=== PATIENT | female | born 1960 | race Caucasian/White ===

== ENCOUNTER 2018-03-03 03:27 | Emergency (ER) | payer BC, SELFPAY ==
[2018-03-03 03:31] VITALS: BP 143/81; PULSE 100; RESP 15; TEMP 36.8; O2SAT 100; BMI 29.5
--- NOTE | 2018-03-03 03:47 | RAD_ITS ---
STUDY: X-RAY CHEST REASON FOR EXAM: Female, 57 years old. Cough TECHNIQUE: Frontal and lateral views of the chest. COMPARISON: None. FINDINGS: The lungs are clear and expanded. There is no demonstrated pleural abnormality. Normal size heart. Normal mediastinum and jimmy. Normal visualized pulmonary arteries. Normal visualized aortic arch and descending thoracic aorta. Normal visualized thoracic spine. Normal visualized ribs, clavicles, and shoulders. There is no demonstrated abnormality of the visualized soft tissue structures of the upper abdomen. RAD/Chest PA and Lateral IMPRESSION: Normal x-ray examination of the chest. Electronically Signed: Ammon Dozier MD at 4:55 EDT Tel , Service support ,
[2018-03-03] MEDS: Ketorolac 15 MG/ML Vial IV (03:58)
[2018-03-03] MEDS: 0.9% Normal Saline 1,000 ML 1000 ML IV (03:58)
[2018-03-03] MEDS: Ondansetron 4 MG/2 ML Vial IV (03:58)
[2018-03-03 04:00] LABS: Absolute Lymphocyte Count 0.93 X10^3/ul (0.83-4.51); Absolute Neutrophil Count 4.8 X10^3/uL (2.0-7.7); Basophil# 0.01 X10^3/uL; Basophil% 0.2 % (0-1); Eosinophil# 0.03 X10^3/uL; Eosinophils% 0.5 % (0-5); Hemoglobin 14.1 g/dl (12.0-15.0); Lymphocyte # 0.93 X10^3/ul (4.0); Lymphocyte % 15.1 % (19-41); Mean Corp Hgb Conc 32.8 g/gl (32-36); Mean Corpuscular Hgb 31.1 pg (27.0-32.0); Mean Corpuscular Volume 94.9 fL (81-99); Monocyte# 0.36 X10^3/uL; Monocyte% 5.8 % (0-10); Neutrophil # 4.82 X10^3/uL (2.7-7.7); Neutrophil % 78.2 % (47-70); Platelet Count 323 K/mm3 (150-450); RBC Distribution Width CV 12.5 % (11.6-14.6); RBC Distribution Width SD 42.4 fl (35.1-43.9); Red Blood Count 4.53 M/mm3 (4.2-5.4); White Blood Count 6.2 K/mm3 (4.4-11.0)
[2018-03-03 04:07] LABS: POSITIVE COUNT NO; POSITIVE DIFFERENTIAL NO; POSITIVE MORPHOLOGY NO
[2018-03-03 04:08] LABS: AST(SGOT) 17 U/L (15-37); Alanine Aminotransfer ALT/SGPT 28 U/L (13-56); Alkaline Phosphatase 89 U/L (45-117); Anion Gap 10 (5-15); BUN 19 mg/dL (7-18); BUN/Creat Ratio 21.5 RATIO (10-20); Calcium,Total 8.6 mg/dL (8.5-10.1); Chloride 103 mmol/L (98-107); Creatinine, Serum 0.88 mg/dL (0.55-1.02); EST Glomerular Filtration Rate 70 mL/min (>60); Est Glom Filt Rate - Afr Amer 85 mL/min (>60); Globulin 3.9 g/dL (2.2-4.2); Glucose 124 mg/dL (74-106); Phosphorus 2.8 mg/dL (2.5-4.9); Potassium 3.8 mmol/L (3.5-5.1); Protein, Total 7.9 g/dL (6.4-8.2); Sodium Level 143 mmol/L (136-145)
[2018-03-03 05:10] VITALS: BP 109/72; PULSE 79; RESP 22; O2SAT 99
--- NOTE | 2018-03-03 05:24 | ED.DCSUM_ITS ---
- ER Visit Summary Date of Service: 03/03/18 Chief Complaint: Nausea vomiting diarrhea and cough History of Present Illness: The patient is a 57 F presenting for evaluation secondary to the above. Patient states that she has been sick for the better part of the last month. Patient reports that approximately a month ago she started with some sinus type symptoms. She reports that she was having congestion, she started to take her antihistamine more regularly, but this progressed to a nonproductive cough. Patient reports that she went to her primary care office and was placed on a course of amoxicillin and Mucinex. She reports that the cough was persistent however and did not alleviate so more recently over the course of the last week she was changed to a azithromycin course as well as prednisone. Patient reports that she just finished her azithromycin course, and was supposed to continue to be taking her prednisone, but today she only took 20 mg and she started to develop subjective fevers chills sweats nausea vomiting and diarrhea. Patient states that since midnight she has had 7-8 episodes of vomiting that is nonbloody nonbilious. She states that she has some mild diffuse abdominal pain. Review of systems is otherwise negative. Physical Examination: Vital signs notable for heart rate of 100. Well- nourished female no acute distress. No conjunctival pallor or scleral icterus. She does have dry mucous membranes. Neck supple. Heart was regular rate and rhythm on my exam no evidence tachycardia. Lung sounds clear to auscultation bilaterally. Abdomen was soft diffusely tender no guarding or rebound tenderness noted. 2+ radial pulses that were bilaterally symmetric. No skin changes noted, no lateralizing neurological deficits. Test Results: CBC shows a mild predominance of neutrophils at 78% and suppression of lymphocytes of 15%, CMP unremarkable magnesium and phosphorus levels are normal. Chest x-ray PA and lateral per radiology and my personal review are negative Emergency Department Course and Treatment: Patient presented for evaluation secondary to generalized illness for a month with new onset of nausea and vomiting. IV was established patient was given 2 L normal saline Zofran and Toradol. Patient's workup was found to be unremarkable as noted above. This rules out the possibility of underlying atypical pneumonia, serious infection, anemia, new onset of leukemia, or other serious cause for the patient's generalized illness. She likely has one illness coming after another and now has developed some gastroenteritis. At this point I believe the patient can safely be discharged. She will be sent home with a course of Zofran. She was recommended follow-up with her primary care physician all questions were answered and the patient was discharged. Disposition: Discharge Impression: 1. Gastroenteritis This note was generated with [employer] dictation software. It may contain incorrect words, spelling, and punctuation that were not noted in review of the chart prior to signing ED Disposition - Plan for ED Patient: Disposition: Home or Assisted Living Chief Complaint: General Illness Diagnosis: Gastroenteritis Instructions: ED Gastroenteritis Viral Prescriptions: Ondansetron [Zofran Odt] 4 mg PO Q8H PRN PRN #10 tab PRN Reason: Nausea Referrals: Tamara Leal MD [Primary Care Provider] - 3-5 Days if not improving
[2018-03-03 06:13] VITALS: BP 109/71; PULSE 96; RESP 19; O2SAT 99
--- NOTE | 2018-03-03 06:14 | ED.RN ---
IV DC'ED, CATHETER INTACT, SMALL GAUZE DRESSING PLACED. DISCHARGE INSTRUCTIONS GIVEN TO AND REVIEWED WITH PATIENT, PATIENT DENIES QUESTIONS OR CONCERNS AND VOICES UNDERSTANDING OF DISCHARGE INSTRUCTIONS. PT AMBULATES OUT OF ROOM WITHOUT DIFFICULTY.
== END 2018-03-03 06:15 | disposition home or self-care (01) ==
PROVIDERS: Emergency Provider Emergency Medicine; Family Provider Family Medicine; PCP Family Medicine
DX: K52.9 Noninfective gastroenteritis and colitis, unspecified (principal); R10.84 Generalized abdominal pain; R05 Cough; Z79.52 Long term (current) use of systemic steroids; Z79.899 Other long term (current) drug therapy
CPT/HCPCS: 71046; 80053; 83735; 84100; 85025; 96361; 96374; 96375; 99282; J7030; A4216; J2405

== ENCOUNTER → 2018-10-08 07:21 | Outpatient (CLI) | payer OTHER, BC, SELFPAY ==
--- NOTE | 2018-10-08 07:32 | BI_ITS ---
MAMMOGRAPHY - BILATERAL SCREENING REASON FOR EXAM: Female, 58 years old. Routine annual screening examination. PERTINENT HISTORY: Non-contributory. TECHNIQUE: Digital bilateral breast bushra (3D mammographic acquisition) in the CC and MLO projections. 2-D mediolateral oblique (MLO) and craniocaudad (CC) views of both breasts were obtained. CAD: Full Field Digital Mammography with Computer Added Detection was performed. COMPARISON: Comparison is made with prior study dated May 13, 2017 and April 10, 2016. FINDINGS: Breast Composition: The breasts are heterogeneously dense, which may obscure small masses. There are no dominant masses or suspicious calcifications. Stable benign-appearing bilateral axillary lymph nodes. No other significant abnormalities are identified. There has been no significant change since the prior study. BI/SCREENING MAMM (CAD), BILAT IMPRESSION: Stable bilateral screening mammogram. Yearly follow-up mammogram recommended. (A) ASSESSMENT CATEGORY: BIRADS Category 2: Benign. A letter regarding these results will be sent to the patient by the facility within 30 days. Approximately 10% of breast cancers are not detected by mammography. A normal mammogram should not delay biopsy of a clinically suspicious abnormality. [id number] Electronically Signed: Ernesto Belcher MD at 8:53 EST Tel [phone], Service support ,
--- OUTSIDE RECORDS SUMMARY | 2018-12-12 14:30 | XMS RPT_ITS ---
:1960 Author Organization [facility] Care Team Providers Name Role Phone PAUL ELMORE, DR. JAIMES Attending Unavailable LUIS EDUARDO ELMORE, DR. ALMONTE Primary Care Unavailable Tamara Leal Attending Unavailable Tamara Leal Primary Care Unavailable Tamara Leal Referring Unavailable Tamara Leal Primary Care Unavailable Mateo Murphy Attending Unavailable PROBLEMS PROBLEMS DATE TYPE CONDITION / CODE ATTENDING STATUS SOURCE 03/26/2018 Unknown R11.2 - Nausea Mateo Murphy Active [facility] with vomiting, Community unspecified / Hospital R11.2(ICD-10) Repository PROCEDURES PROCEDURES No Procedure Records FoundRESULTS RESULTS SCREENING MAMM (CAD), Observed: 10/08/2018 Status: F Source: [place] BILAT 7:32 AM [facility] REPOSITORY [facility] Imaging Services [address] [place] [address] SCREENING MAMM (CAD), BILAT MR#: [id number] Acct: [id number] Name: LORELEI BAE Rep #: [id number] : 1960 F 58 From: Ernesto Belcher MD PCP: Tamara Leal MD Status: REG CLI Study: SCREENING MAMM (CAD), BILAT Date of Exam: 10/08/18 Exam# [id number] Ordering Dr: Tamara Leal MD MAMMOGRAPHY - BILATERAL SCREENING REASON FOR EXAM: Female, 58 years old. Routine annual screening examination. PERTINENT HISTORY: Non-contributory. TECHNIQUE: Digital bilateral breast bushra (3D mammographic acquisition) in the CC and MLO projections. 2-D mediolateral oblique (MLO) and craniocaudad (CC) views of both breasts were obtained. CAD: Full Field Digital Mammography with Computer Added Detection was performed. COMPARISON: Comparison is made with prior study dated May 13, 2017 and April 10, 2016. FINDINGS: Breast Composition: The breasts are heterogeneously dense, which may obscure small masses. There are no dominant masses or suspicious calcifications. Stable benign-appearing bilateral axillary lymph nodes. No other significant abnormalities are identified. There has been no significant change since the prior study. BI/SCREENING MAMM (CAD), BILAT IMPRESSION: Stable bilateral screening mammogram. Yearly follow-up mammogram recommended. (A) ASSESSMENT CATEGORY: BIRADS Category 2: Benign. A letter regarding these results will be sent to the patient by the facility within 30 days. Approximately 10% of breast cancers are not detected by mammography. A normal mammogram should not delay biopsy of a clinically suspicious abnormality. [id number] Electronically Signed: Ernesto Belcher MD at 8:53 EST Tel [phone], Service support , CC: Tamara Leal MD Transport Nurse: Signed FINAL SURGICAL Observed: 09/06/2018 Status: F Source: [facility] PATHOLOGY REPORT 10:40 AM [place] REPOSITORY . Pathology Reports Accession: Collected Date/Time: Received Date/Time: Pathologist: [id number] 09/06/2018 10:40 EST 09/07/2018 08:29 MD LOAN CANO Final Surgical Pathology Report DIAGNOSIS: STOMACH, BIOPSY: MILD CHRONIC GASTRITIS. NEGATIVE FOR H. PYLORI. COMMENT: [facility] - D# [id number] CLINICAL INFORMATION: Procedure: EGD WITH BIOPSIES GASTRIC ANTRUM BODY Preoperative diagnosis: GERD Postoperative diagnosis: SAME SPECIMEN: A BIOPSIES GASTRIC ANTRUM BODY - R/O GASTRITIS GROSS DESCRIPTION: Received in formalin labeled gastric antrum body biopsies are 3 anthony glistening soft tissues averaging 0.3 cm. TS -1 Dictated by Laura SHOEMAKER ([facility]) MICROSCOPIC DESCRIPTION: Slides reviewed. Electronically Signed by Pathology Report verified by [facility] Electronically signed by LOAN KUMAR MD Sign out Date: 09/08/2018 11:43 Performing Lab: [address] Performed By: #### SPFR #### [place] [address] EMERGENCY DEPARTMENT Observed: 03/03/2018 Status: F Source: [place] SUMMARY 7:27 AM [facility] REPOSITORY [facility] Medical Records Department [address] [place] [address] Emergency Department Summary 03/03/18 0520 MR#: [id number] Acct: [id number] Name: LORELEI BAE Rep #: [id number] : 1960 57 From: Mateo Murphy MD PCP: Tamara Leal MD Status: DEP ER - ER Visit Summary Date of Service: 03/03/18 Chief Complaint: Nausea vomiting diarrhea and cough History of Present Illness: The patient is a 57 F presenting for evaluation secondary to the above. Patient states that she has been sick for the better part of the last month. Patient reports that approximately a month ago she started with some sinus type symptoms. She reports that she was having congestion, she started to take her antihistamine more regularly, but this progressed to a nonproductive cough. Patient reports that she went to her primary care office and was placed on a course of amoxicillin and Mucinex. She reports that the cough was persistent however and did not alleviate so more recently over the course of the last week she was changed to a azithromycin course as well as prednisone. Patient reports that she just finished her azithromycin course, and was supposed to continue to be taking her prednisone, but today she only took 20 mg and she started to develop subjective fevers chills sweats nausea vomiting and diarrhea. Patient states that since midnight she has had 7-8 episodes of vomiting that is nonbloody nonbilious. She states that she has some mild diffuse abdominal pain. Review of systems is otherwise negative. Physical Examination: Vital signs notable for heart rate of 100. Well-nourished female no acute distress. No conjunctival pallor or scleral icterus. She does have dry mucous membranes. Neck supple. Heart was regular rate and rhythm on my exam no evidence tachycardia. Lung sounds clear to auscultation bilaterally. Abdomen was soft diffusely tender no guarding or rebound tenderness noted. 2+ radial pulses that were bilaterally symmetric. No skin changes noted, no lateralizing neurological deficits. Test Results: CBC shows a mild predominance of neutrophils at 78% and suppression of lymphocytes of 15%, CMP unremarkable magnesium and phosphorus levels are normal. Chest x-ray PA and lateral per radiology and my personal review are negative Emergency Department Course and Treatment: Patient presented for evaluation secondary to generalized illness for a month with new onset of nausea and vomiting. IV was established patient was given 2 L normal saline Zofran and Toradol. Patient's workup was found to be unremarkable as noted above. This rules out the possibility of underlying atypical pneumonia, serious infection, anemia, new onset of leukemia, or other serious cause for the patient's generalized illness. She likely has one illness coming after another and now has developed some gastroenteritis. At this point I believe the patient can safely be discharged. She will be sent home with a course of Zofran. She was recommended follow-up with her primary care physician all questions were answered and the patient was discharged. Disposition: Discharge Impression: 1. Gastroenteritis This note was generated with [employer] dictation software. It may contain incorrect words, spelling, and punctuation that were not noted in review of the chart prior to signing ED Disposition - Plan for ED Patient: Disposition: Home or Assisted Living Chief Complaint: General Illness Diagnosis: Gastroenteritis Instructions: ED Gastroenteritis Viral Prescriptions: Ondansetron [Zofran Odt] 4 mg PO Q8H PRN PRN #10 tab PRN Reason: Nausea Referrals: Tamara Leal MD [Primary Care Provider] - 3-5 Days if not improving What to do if you have Problems For any increased pain, shortness of breath, bleeding, nausea or vomiting, chest pain, or any unexpected problems, contact your Primary Care Provider. Call [facility] ([phone]) or report to the closest Emergency Room. Call 911 if necessary. 03/03/18 0727 <Electronically signed by Mateo Murphy MD> Date Mateo Murphy MD Cosigner Signature (If Indicated): Date CC: Tamara Leal MD CHEST PA AND LATERAL Observed: 03/03/2018 Status: F Source: [place] 3:48 AM [facility] REPOSITORY [facility] Imaging Services [address] [place] [address] Chest PA and Lateral MR#: [id number] Acct: [id number] Name: LORELEI BAE Rep #: [id number] : 1960 F 57 From: Ammon Dozier MD PCP: Tamara Leal MD Status: REG ER Study: Chest PA and Lateral Date of Exam: 03/03/18 Exam# [id number] Ordering Dr: Mateo Murphy MD STUDY: X-RAY CHEST REASON FOR EXAM: Female, 57 years old. Cough TECHNIQUE: Frontal and lateral views of the chest. COMPARISON: None. FINDINGS: The lungs are clear and expanded. There is no demonstrated pleural abnormality. Normal size heart. Normal mediastinum and jimmy. Normal visualized pulmonary arteries. Normal visualized aortic arch and descending thoracic aorta. Normal visualized thoracic spine. Normal visualized ribs, clavicles, and shoulders. There is no demonstrated abnormality of the visualized soft tissue structures of the upper abdomen. RAD/Chest PA and Lateral IMPRESSION: Normal x-ray examination of the chest. Electronically Signed: Ammon Dozier MD at 4:55 EDT Tel , Service support , CC: Tamara Leal MD; Mateo Murphy Transport Nurse: Signed CBC W/DIFF, AUTOMATED Collected: 03/03/2018 Status: F Source: [place] 3:34 AM [facility] REPOSITORY TYPE CODE TESTS RESULT OUT OF RANGE REFERENCE UNITS LAB L100.1000 4.4-11.0 K/mm3 Normal WBC 6.2 LAB L100.1200 4.2-5.4 M/mm3 Normal RBC 4.53 LAB L100.1300 12.0-15.0 g/dl Normal HGB 14.1 LAB L100.1400 37-47 % Normal HCT 43.0 LAB L100.1500 81-99 fL Normal MCV 94.9 LAB L100.1600 27.0-32.0 pg Normal MCH 31.1 LAB L100.1700 32-36 g/gl Normal MCHC 32.8 LAB L100.1810 11.6-14.6 % Normal RDW CV 12.5 LAB L100.1820 35.1-43.9 fl Normal RDW SD 42.4 LAB L100.1900 150-450 K/mm3 Normal PLT 323 LAB L100.2000 6.2-12.0 fl Normal MPV 9.0 LAB L100.2100 47-70 % High NEUT% 78.2 LAB L100.2200 19-41 % Low LY% 15.1 LAB L100.2300 0-10 % Normal MONO% 5.8 LAB L100.2400 0-5 % Normal EO% 0.5 LAB L100.2500 0-1 % Normal BASO% 0.2 LAB L100.2550 0.0-0.9 % Normal IM GRAN % 0.200 Result Comment: IG% - Immature Granulocytes (promyelocytes, myelocytes and metamyelocytes) > 1% indicates that a LEFT SHIFT is Present. LAB L100.2620 2.0-7.7 X10 3/uL Normal Absolute Neut 4.8 LAB L100.2720 0.83-4.51 X10 3/ul Normal Absolute Lymph 0.93 Performed By: #### L100.0100 #### [facility] [address] [place], [address] COMPREHENSIVE METABOLIC Collected: 03/03/2018 Status: F Source: [facility] 3:34 AM [facility] REPOSITORY TYPE CODE TESTS RESULT OUT OF RANGE REFERENCE UNITS LAB L501.0100 74-106 mg/dL High GLU 124 Result Comment: Fasting Glucose result from 100 to 125 mg/dL suggests IMPAIRED HOMEOSTASIS per A.D.A. criteria. Please note revised GLUCOSE reference range effective 2017. LAB L501.1000 7-18 mg/dL High BUN 19 LAB L501.1100 0.55-1.02 mg/dL Normal CREAT,SERUM 0.88 Result Comment: The validity of the calculated GFR AND GFRAA in patients over 70 years has not been determined. Clinical correlation is essential. LAB L501.1110 >60 mL/min Normal EST GFR 70 Result Comment: Non- GFR Calc LAB L501.1115 >60 mL/min Normal EST GFR - AA 85 Result Comment: GFR Calc LAB L501.1300 10-20 RATIO High BUN/CRE 21.5 LAB L501.1500 6.4-8.2 g/dL T Normal PROT 7.9 LAB L501.1800 3.2-5.0 g/dL Normal ALB 4.0 LAB L501.1950 2.2-4.2 g/dL Normal GLOB 3.9 LAB L501.2000 0.9-2.4 RATIO Normal A/G 1.0 LAB L501.2200 8.5-10.1 mg/dL CA Normal 8.6 LAB L501.4100 15-37 U/L Normal AST 17 LAB L501.4305 45-117 U/L Normal ALK P 89 LAB L501.4405 13-56 U/L Normal ALT 28 LAB L501.4600 0.20-1.00 mg/dL T Normal BILI 0.30 LAB L501.5300 136-145 mmol/L NA Normal 143 LAB L501.5600 3.5-5.1 mmol/L K Normal 3.8 LAB L501.5900 98-107 mmol/L CL Normal 103 LAB L501.6100 21.0-32.0 mmol/L Normal CO2 30.0 LAB L501.6200 5-15 Normal GAP 10 Performed By: #### L500.4050, L501.5200 #### [facility] [address] [place], [address] MAGNESIUM Collected: 03/03/2018 Status: F Source: [place] 3:34 AM [facility] REPOSITORY TYPE CODE TESTS RESULT OUT OF RANGE REFERENCE UNITS LAB L501.5200 1.6-2.6 mg/dL Normal MG 2.0 Performed By: #### L500.4050, L501.5200 #### [facility] [address] [place], [address] PHOSPHORUS Collected: 03/03/2018 Status: F Source: [place] 3:34 [facility] REPOSITORY TYPE CODE TESTS RESULT OUT OF RANGE REFERENCE UNITS LAB L501.2300 2.5-4.9 mg/dL Normal PHOS 2.8 Performed By: #### L501.2300 #### [facility] [address] [place], [address] ALLERGIES ALLERGIES DATE TYPE / CODE NAME / CODE REACTION SEVERITY SOURCE 03/03/2018 Drug Sulfa Hives Unknown [facility] Allergy/4160 (Sulfonamide Hospital 34001(SNOMED Antibiotics)/ Repository CT) [id number](RX NORM) ENCOUNTERS ENCOUNTERS ADMIT/DISCHARGE ACCOUNT NUMBER ADMITTING ENCOUNTER LOCATION SOURCE CLASS 10/08/2018 [id number] Ambulatory General acute hospital ding:OPBI Repository 09/06/2018/09/06/20 [id number] Ambulatory BBuilding:CT Natalie [address] [place] [address] Repository 03/03/2018/03/03/20 [id number] Emergency [address] ding:ED Repository PAYERS PAYERS ENCOUNTER GUARANTOR PAYER SUBSCRIBER SOURCE 10/08/2018 LORELEI Portillo Primary LORELEI Portillo [place] [id number] HEYL Insurance:MINE ROA: [place], [place] CAREPolicy Number: [id number] Hospital [address]Luo: (239) [id number] Repository [address] () Date:5750-33-[address] [facility] [place] [address]UK: 10/08/2018 Secondary PEDRO RHEESDOB: Davi Insurance:ANTHEMPolic [id number] [facility]ly [facility] y Number: Hospital [id number] Repository Date:8614-10-31[address], [place] [address]KG: 10/08/2018 Tertiary NOT GIVENUNK Davi Insurance:SELF PAY [facility]: Effective Repository Date:2018-08-27 09/06/2018 LORELEI Lindsey Primary [facility] Health RHEESDOB: Insurance:SUMMACARE RHEESDOB: [facility] [id number] INSCOPolicy Number: [id number] Repository HEYL JACQUE, [id number] [place] [address]Sfj: Date:2018 - [place], [place] [id number] [address]Yfa: (330) () Name:[address] ()Tel: [phone]: (WP) [phone] 09/06/2018 Secondary LORELEI Olearyltman Health Insurance:BE RHEESDOB: [facility] INSCOPolicy [id number] Repository Number: 5 TERR[address] [id number] [place], [place] Date:2018 [address]Jza: ([phone] [id number] [phone] Name:[facility] BOX ()Tel: (000) [address] 000[address] (DZ) [phone]: 09/06/2018 Tertiary YANI RHEESDOB: [facility] Insurance:[facility] [place] [id number] [facility] INSCOPolicy 5 HEYL Repository Number: KAYLYN SANTILLAN [id number] [address]Vbc: (330) Date:2018 [id number] ()Tel: (000) Name:[facility] [address] [phone] (WP) [address]Ikajjvg, [place] [address]TQ: 03/03/2018 LORELEI Portillo Primary YANI RHEESUNK [place] [id number] HEYL Insurance:[facility] kaylyn Santillan y Number: Hospital [id number]: (330) [id number] Repository [phone] () Date:[id number], [place] [address]VF: 03/03/2018 Secondary NOT GIVENUNK [place] Insurance:SELF PAY Community [facility] Number: Effective Repository Date:2018-03-03
== END ==
PROVIDERS: Family Provider Family Medicine; PCP Family Medicine; Referring Provider Family Medicine; Visit Provider Family Medicine
DX: Z12.31 Encounter for screening mammogram for malignant neoplasm of breast (principal)
CPT/HCPCS: 77063; 77067

== ENCOUNTER → 2019-11-24 08:35 | Outpatient (CLI) | payer OTHER, SELFPAY ==
--- NOTE | 2019-11-24 08:38 | BI_ITS ---
MAMMOGRAPHY - BILATERAL SCREENING REASON FOR EXAM: Female, 59 years old. Routine annual screening examination. PERTINENT HISTORY: Non-contributory. TECHNIQUE: Digital bilateral breast to (3D mammographic acquisition) in the CC and MLO projections. 2-D mediolateral oblique (MLO) and craniocaudad (CC) views of both breasts were obtained. CAD: Full Field Digital Mammography with Computer Added Detection was performed. COMPARISON: Comparison is made with prior study dated October 08, 2018 and May 13, 2017. FINDINGS: Breast Composition: The breasts are heterogeneously dense, which may obscure small masses. There are no dominant masses or suspicious calcifications. No other significant abnormalities are identified. There has been no significant change since the prior study. BI/SCREEN MAMM (CAD) W/TO BILAT IMPRESSION: Stable bilateral screening mammogram. Yearly follow-up mammogram recommended. (A) ASSESSMENT CATEGORY: BIRADS Category 1: Negative. A letter regarding these results will be sent to the patient by the facility within 30 days. Approximately 10% of breast cancers are not detected by mammography. A normal mammogram should not delay biopsy of a clinically suspicious abnormality. [id number] Electronically Signed: Ernesto Belcher, at 10:39 EST , Service support ,
== END ==
PROVIDERS: PCP Family Medicine; Referring Provider Family Medicine; Visit Provider Family Medicine
DX: Z12.31 Encounter for screening mammogram for malignant neoplasm of breast (principal)
CPT/HCPCS: 77063; 77067

== ENCOUNTER → 2020-03-16 08:54 | Outpatient (CLI) | payer OTHER, SELFPAY ==
[2020-03-16 12:15] LABS: Absolute Neutrophil Count 2.7 X10^3/uL (2.0-7.7); Basophil# 0.04 X10^3/uL; Basophil% 0.8 % (0-1); Eosinophil# 0.12 X10^3/uL; Eosinophils% 2.4 % (0-5); Hematocrit 42.5 % (37-47); Hemoglobin 13.4 g/dL (12.0-15.0); Mean Corp Hgb Conc 31.5 g/dL (32-36); Mean Corpuscular Hgb 30.3 pg (27.0-32.0); Mean Corpuscular Volume 96.2 fL (81-99); Mean Platelet Vol. 9.6 fl (6.2-12.0); Monocyte# 0.29 X10^3/uL; Monocyte% 5.8 % (0-10); NRBC Flagged by Analyzer 0 % (0-5); Neutrophil # 2.74 X10^3/uL (2.7-7.7); Neutrophil % 54.8 % (47-70); Platelet Count 305 K/mm3 (150-450); RBC Distribution Width CV 12.8 % (11.6-14.6); RBC Distribution Width SD 45.6 fl (35.1-43.9); Red Blood Count 4.42 M/mm3 (4.2-5.4)
[2020-03-16 12:28] LABS: Vitamin D,25 Hydroxy 29.9 ng/mL
[2020-03-16 12:43] LABS: AST(SGOT) 20 U/L (15-37); Alanine Aminotransfer ALT/SGPT 28 U/L (13-56); Alkaline Phosphatase 71 U/L (45-117); Anion Gap 7 (5-15); BUN 14 mg/dL (7-18); BUN/Creat Ratio 16.4 RATIO (10-20); Calcium,Total 9.5 mg/dL (8.5-10.1); Chloride 103 mmol/L (98-107); Cholesterol 219 mg/dL (200); Creatinine, Serum 0.85 mg/dL (0.55-1.02); EST Glomerular Filtration Rate 73 mL/min (>60); Est Glom Filt Rate - Afr Amer 88 mL/min (>60); Globulin 3.9 g/dL (2.2-4.2); Glucose 94 mg/dL (74-106); High Density Lipoprotein 84 mg/dL; Potassium 4.5 mmol/L (3.5-5.1); Protein, Total 7.9 g/dL (6.4-8.2); Sodium Level 139 mmol/L (136-145); Thyroid Stim Hormone (TSH) 2.22 uIU/mL (0.358-3.74); Triglycerides 77 mg/dL; Very Low Density Lipoprotein 15 mg/dL (5-40)
== END ==
PROVIDERS: PCP Family Medicine; Visit Provider Family Medicine
DX: Z00.01 Encounter for general adult medical examination with abnormal findings (principal); K21.9 Gastro-esophageal reflux disease without esophagitis; R49.0 Dysphonia; E55.9 Vitamin D deficiency, unspecified
CPT/HCPCS: 36415; 80053; 80061; 82306; 84443; 85025

== ENCOUNTER → 2020-12-17 07:14 | Outpatient (CLI) | payer OTHER, SELFPAY ==
[2020-06-05 08:18] VITALS: BMI 29.5
--- NOTE | 2020-12-17 07:17 | BI_ITS ---
MAMMOGRAPHY - BILATERAL SCREENING REASON FOR EXAM: Female, 60 years old. Routine annual screening examination. PERTINENT HISTORY: Non-contributory. TECHNIQUE: Digital bilateral breast to (3D mammographic acquisition) in the CC and MLO projections. 2-D mediolateral oblique (MLO) and craniocaudad (CC) views of both breasts were obtained. CAD: Full Field Digital Mammography with Computer Added Detection was performed. COMPARISON: Comparison is made with prior study 11/24/2019 and 10/08/2018. FINDINGS: Breast Composition: The breasts are heterogeneously dense, which may obscure small masses. There are no dominant masses or suspicious calcifications. No other significant abnormalities are identified. There has been no significant change since the prior study. BI/SCRN MAMM (CAD)W/TO BILAT IMPRESSION: Stable bilateral screening mammogram. Yearly follow-up mammogram recommended. (A) ASSESSMENT CATEGORY: BIRADS Category 1: Negative. A letter regarding these results will be sent to the patient by the facility within 30 days. Approximately 10% of breast cancers are not detected by mammography. A normal mammogram should not delay biopsy of a clinically suspicious abnormality. [id number] Electronically Signed: Ernesto Belcher MD at 8:15 EDT , Service support ,
== END ==
PROVIDERS: PCP Family Medicine; Referring Provider Family Medicine; Visit Provider Family Medicine
DX: Z12.31 Encounter for screening mammogram for malignant neoplasm of breast (principal)
CPT/HCPCS: 77063; 77067

== ENCOUNTER → 2021-06-12 | Outpatient (CLI) | payer OTHER, SELFPAY | END | disposition home or self-care (01) | LOC: LABSPEC 15:10 | PROVIDERS: PCP Family Medicine; Referring Provider Physician Assistant; Visit Provider Physician Assistant | DX: U07.1 COVID-19 (principal) | CPT/HCPCS: 87635; U0005; U0003 ==

== ENCOUNTER 2021-12-18 07:41 | Outpatient (CLI) | payer OTHER, SELFPAY ==
--- NOTE | 2021-12-18 07:44 | BI_ITS ---
MAMMOGRAPHY - BILATERAL SCREENING REASON FOR EXAM: Female, 61 years old. Routine annual screening examination. PERTINENT HISTORY: Non-contributory. TECHNIQUE: Digital bilateral breast to (3D mammographic acquisition) in the CC and MLO projections. 2-D mediolateral oblique (MLO) and craniocaudad (CC) views of both breasts were obtained. CAD: Full Field Digital Mammography with Computer Added Detection was performed. COMPARISON: Comparison is made with prior study dated 12/17/2020 and 11/24/2019. FINDINGS: Breast Composition: There are scattered areas of fibroglandular density. There are no dominant masses or suspicious calcifications. Stable small benign-appearing bilateral axillary lymph nodes. No other significant abnormalities are identified. There has been no significant change since the prior study. BI/SCRN MAMM (CAD)W/TO BILAT IMPRESSION: Stable bilateral screening mammogram. Yearly follow-up mammogram recommended. (A) ASSESSMENT CATEGORY: BIRADS Category 2: Benign. A letter regarding these results will be sent to the patient by the facility within 30 days. Approximately 10% of breast cancers are not detected by mammography. A normal mammogram should not delay biopsy of a clinically suspicious abnormality. [id number] Electronically Signed: Ernesto Belcher MD at 8:52 EDT ,
== END 2021-12-18 23:59 | disposition home or self-care (01) ==
LOC: OPBI 07:42
PROVIDERS: PCP Family Medicine; Visit Provider Family Medicine
DX: Z12.31 Encounter for screening mammogram for malignant neoplasm of breast (principal)
CPT/HCPCS: 77063; 77067

== ENCOUNTER → 2022-04-11 | Outpatient (CLI) | payer OTHER, SELFPAY ==
[2022-04-11 10:03] LABS: Absolute Lymphocyte Count 1.77 X10^3/uL (0.83-4.51); Absolute Neutrophil Count 2.3 X10^3/uL (2.0-7.7); Basophil# 0.04 X10^3/uL; Basophil% 0.9 % (0-1); Eosinophil# 0.09 X10^3/uL; Hematocrit 41.3 % (37-47); Hemoglobin 13.7 g/dL (12.0-15.0); Lymphocyte # 1.77 X10^3/ul (0.83-4.51); Lymphocyte % 39.3 % (19-41); Mean Corp Hgb Conc 33.2 g/dL (32-36); Mean Corpuscular Hgb 31.5 pg (27.0-32.0); Mean Corpuscular Volume 94.9 fL (81-99); Mean Platelet Vol. 9.1 fl (6.2-12.0); Monocyte# 0.27 X10^3/uL; NRBC Flagged by Analyzer 0 % (0-5); Neutrophil # 2.32 X10^3/uL (2.7-7.7); Neutrophil % 51.6 % (47-70); Platelet Count 303 K/mm3 (150-450); RBC Distribution Width CV 12.6 % (11.6-14.6); RBC Distribution Width SD 43.5 fl (35.1-43.9); Red Blood Count 4.35 M/mm3 (4.2-5.4); White Blood Count 4.5 K/mm3 (4.4-11.0)
[2022-04-11 10:40] LABS: ALB/GLOB Ratio 1.1 RATIO (0.9-2.4); AST(SGOT) 29 U/L (15-37); Alanine Aminotransfer ALT/SGPT 33 U/L (13-56); Albumin, Serum 4.1 g/dL (3.2-5.0); Alkaline Phosphatase 85 U/L (45-117); Anion Gap 7 (5-15); BUN 18 mg/dL (7-18); BUN/Creat Ratio 20.9 RATIO (10-20); Calcium,Total 9.4 mg/dL (8.5-10.1); Chloride 103 mmol/L (98-107); Cholesterol 214 mg/dL (200); Creatinine, Serum 0.86 mg/dL (0.55-1.02); EST Glomerular Filtration Rate 71 mL/min (>60); Est Glom Filt Rate - Afr Amer 86 mL/min (>60); Globulin 3.9 g/dL (2.2-4.2); Glucose 103 mg/dL (74-106); High Density Lipoprotein 78 mg/dL; Potassium 3.8 mmol/L (3.5-5.1); Sodium Level 139 mmol/L (136-145); Triglycerides 67 mg/dL; Very Low Density Lipoprotein 13 mg/dL (5-40)
[2022-04-16 12:09] LABS: Age Gdln ACOG Testing 30-65 (.)
[2022-04-16 12:25] LABS: HPV APTIMA, High Risk Negative (Negative)
[2022-04-16 12:26] LABS: HPV Reflexed? YES, CHARGE PATIENT
== END | disposition home or self-care (01) ==
LOC: MTLAB 09:16
PROVIDERS: PCP Family Medicine; Referring Provider Family Medicine; Visit Provider Family Medicine
DX: Z12.4 Encounter for screening for malignant neoplasm of cervix (principal); K21.9 Gastro-esophageal reflux disease without esophagitis
CPT/HCPCS: 36415; 80053; 80061; 85025; 87624; 88175; G0145

== ENCOUNTER → 2022-12-19 | Outpatient (CLI) | payer OTHER, SELFPAY ==
--- NOTE | 2022-12-19 09:45 | BI_ITS ---
MAMMOGRAPHY - BILATERAL SCREENING REASON FOR EXAM: Female, 62 years old. Routine annual screening examination. PERTINENT HISTORY: Non-contributory. TECHNIQUE: Digital bilateral breast to (3D mammographic acquisition) in the CC and MLO projections. 2-D mediolateral oblique (MLO) and craniocaudad (CC) views of both breasts were obtained. CAD: Full Field Digital Mammography with Computer Added Detection was performed. COMPARISON: Comparison is made with prior examination of December 18, 2021 and December 17, 2020. FINDINGS: Breast Composition: There are scattered areas of fibroglandular density. There are no dominant masses or suspicious calcifications. Stable small benign-appearing bilateral axillary lymph nodes. No other significant abnormalities are identified. There has been no significant change since the prior study. BI/SCRN MAMM (CAD)W/TO BILAT IMPRESSION: Stable bilateral screening mammogram. Yearly follow-up mammogram recommended. (A) ASSESSMENT CATEGORY: BIRADS Category 2: Benign. A letter regarding these results will be sent to the patient by the facility within 30 days. Approximately 10% of breast cancers are not detected by mammography. A normal mammogram should not delay biopsy of a clinically suspicious abnormality. [id number] Electronically Signed: Ernesto Belcher MD at 11:02 EDT ,
== END | disposition home or self-care (01) ==
LOC: OPBI 09:43
PROVIDERS: PCP Family Medicine; Referring Provider Family Medicine; Visit Provider Family Medicine
DX: Z12.31 Encounter for screening mammogram for malignant neoplasm of breast (principal)
CPT/HCPCS: 77063; 77067

== ENCOUNTER → 2023-09-25 | Outpatient (CLI) | payer OTHER, SELFPAY ==
--- OUTSIDE RECORDS SUMMARY | 2023-09-25 17:59 | XMS RPT_ITS | CCD ---
Author Name Unknown Address [address] [place] [address] Organization [facility] Care Team Providers Care Foreman Shipping Department Name Role Phone THEODORE MILLER Unavailable Unavailable SUZY HOFF Unavailable Unavailable Results Test Name Value Interpretation Reference Range Facil ity Encounters Encounter Date Encounter Type Care Provider Facility Start: 09-06-2018 End: 09-06-2018 Patient encounter procedure THEODORE MILLER Facility:B Payers Date Payer Category Payer Unknown [id number] 2018 Unknown [id number] 2018 Unknown [id number] 1960 Unknown [id number] Summary Purpose Family History No Family History Records Found Advance Directives No Advanced Directives Records Found Additional Source Comments INFORMATION SOURCE (unrecogn ized section and content) FOR RECORDS PERTAINING TO PATIENTS WHO ARE OR HAVE BEEN ENROLLED IN A CHEMICAL DEPENDENCY/SUBSTANCEABUSE PROGRAM, SOME INFORMATION MAY BE OMITTED. This clinical summary was aggregated from multiple sources. Caution should be exercised in using it in the provision of clinical care. This summary normalizes information from multiple sources, and as a consequence, information in this document may materially change the coding, format and clinical context of patient data. In addition, data may be omitted in some cases. CLINICAL DECISIONS SHOULD BE BASED ON THE PRIMARY CLINICAL RECORDS. [employer] provides no warranty or guarantee of the accuracy or completeness of information in this document.
== END | disposition home or self-care (01) ==
PROVIDERS: PCP Family Medicine; Referring Provider Family Medicine; Visit Provider Family Medicine
DX: R10.31 Right lower quadrant pain (principal); R10.32 Left lower quadrant pain
CPT/HCPCS: 87086

== ENCOUNTER 2023-09-26 07:06 | Emergency (ER) | payer OTHER, SELFPAY ==
[2023-09-26 07:08] VITALS: BP 141/73; PULSE 87; RESP 16; TEMP 36.6; O2SAT 100; BMI 30.2
[2023-09-26 07:50] LABS: Mucous, Urine 0 SEEN /hpf (<or=2+); Squamous Epithelial Cells - UA 0 SEEN /hpf (5-10)
[2023-09-26 07:57] LABS: Absolute Lymphocyte Count 1.81 X10^3/uL (0.83-4.51); Absolute Neutrophil Count 2.6 X10^3/uL (2.0-7.7); Basophil# 0.04 X10^3/uL; Basophil% 0.8 % (0-1); Eosinophil# 0.07 X10^3/uL; Eosinophils% 1.5 % (0-5); Hematocrit 40.1 % (37-47); Lymphocyte # 1.81 X10^3/ul (0.83-4.51); Lymphocyte % 38.2 % (19-41); Mean Corp Hgb Conc 32.4 g/dL (32-36); Mean Corpuscular Hgb 30.5 pg (27.0-32.0); Mean Corpuscular Volume 94.1 fL (81-99); Mean Platelet Vol. 9.1 fl (6.2-12.0); Monocyte# 0.26 X10^3/uL; Monocyte% 5.5 % (0-10); NRBC Flagged by Analyzer 0 % (0-5); Neutrophil # 2.56 X10^3/uL (2.7-7.7); Platelet Count 262 K/mm3 (150-450); RBC Distribution Width CV 12.7 % (11.6-14.6); Red Blood Count 4.26 M/mm3 (4.2-5.4); White Blood Count 4.7 K/mm3 (4.4-11.0)
[2023-09-26 07:58] LABS: Color, Urine Yellow (Yellow); Glucose, Dipstick Normal (Normal); Ketone-Dipstick Negative (Negative); Leukocyte Esterase-Dipstick 100 /ul (Negative); Nitrite-Dipstick Negative (Negative); Occult Blood-Urine 150 /ul (Negative); Protein-Dipstick 15 mg/dl (Negative); Urine Bilirubin Dipstick Negative (Negative); Urine Clarity Sl. Cloudy (Clear); Urine Urobilinogen Normal (Normal)
--- OUTSIDE RECORDS SUMMARY | 2023-09-26 08:01 | XMS RPT_ITS | CCD ---
Author Name Unknown Address [address] [place] [address] Organization [facility] Care Team Providers Care Manager Community Development Name Role Phone THEODORE MILLER Unavailable Unavailable SUZY HOFF Unavailable Unavailable Results Test Name Value Interpretation Reference Range Facil ity Encounters Encounter Date Encounter Type Care Provider Facility Start: 09-06-2018 End: 09-06-2018 Patient encounter procedure THEODORE MILLER Facility:B Payers Date Payer Category Payer Unknown [id number] 2018 Unknown [id number] 2018 Unknown [id number] 1960 Unknown [id number] Summary Purpose Family History No Family History [...] BE BASED ON THE PRIMARY CLINICAL RECORDS. [employer] provides no warranty or guarantee of the accuracy or completeness of information in this document.
[2023-09-26 08:12] VITALS: BP 135/86; PULSE 70; RESP 16; TEMP 36.6; O2SAT 99
[2023-09-26 08:13] LABS: Anion Gap 4 (5-15); BUN 13 mg/dL (7-18); BUN/Creat Ratio 14.7 RATIO (10-20); Calcium,Total 8.9 mg/dL (8.5-10.1); Chloride 108 mmol/L (98-107); Creatinine, Serum 0.89 mg/dL (0.55-1.02); EST Glomerular Filtration Rate 69 mL/min (>60); Est Glom Filt Rate - Afr Amer 83 mL/min (>60); Estimated Creatinine Clearance 47.08 ml/min; Glucose 103 mg/dL (74-106); Sodium Level 139 mmol/L (136-145)
[2023-09-26 08:15] LABS: Bacteria 1+ /hpf (None Seen); Red Blood Cells-Urine 0-5 SEEN /hpf (0-5); White Blood Cells 5-10 SEEN /hpf (0-5)
--- NOTE | 2023-09-26 08:41 | CT_ITS ---
HISTORY: LLQ abdominal pain. TECHNIQUE: Helically acquired images were obtained of the abdomen and pelvis after the intravenous administration of 100mL Isovue-300. A radiation dose optimization technique was used for this scan. 386 images. COMPARISON: 12/31/2014. FINDINGS: LOWER CHEST: Lung bases clear. BOWEL: Bowel including appendix nondilated. Mild left lower quadrant ovoid fatty stranding adjacent to the distal descending colon. Colonic diverticulosis without focal inflammatory change observed. PERITONEUM: No significant ascites. LIVER: No enhancing mass. GALLBLADDER/BILIARY TREE: Interval cholecystectomy. SPLEEN/PANCREAS: Homogeneous and nonenlarged. KIDNEYS/ADRENAL GLANDS: Unremarkable. VESSELS: No abdominal aortic aneurysm. Incompletely imaged hypodensity in the left femoral vein. PELVIC ORGANS: No pelvic masses. ABDOMINAL WALL: Tiny fat-containing umbilical hernia. BONES: Mild degenerative change. CT/Abdomen/Pelvis W IV Cont ONLY IMPRESSION: Acute epiploic appendagitis with mild left lower quadrant inflammation. Colonic diverticulosis without acute diverticulitis. Small hypodensity in the left femoral vein, possible nonocclusive deep venous thrombosis versus mixing artifact. Recommend correlation with venous Doppler ultrasound. Electronically Signed: Janine Whittington MD at 9:51 EST ,
--- NOTE | 2023-09-26 08:42 | ED.VIS.GI ---
HPI HPI - GI History of Present Illness Chief Complaint: Complaint Narrative Narrative: 63-year-old female with left lower quadrant abdominal pain. She states initially started across the lower abdomen on both sides but is localized to the left. No fever, chills, nausea, vomiting, dysuria. Patient states she had a urinalysis done by her primary care physician which showed a very small amount of occult blood and the patient was put on Cipro for this. Patient does state that she has not had any urinary symptoms. She states her primary care physician wanted to rule out a UTI. Patient's pain is racing and localized to left lower quadrant. [facility] Medical History Encounter for screening for COVID-19 Home Medications loratadine 10 mg tablet (Claritin) 10 mg PO PRN PRN allergy symptoms 06/05/20 [History Last Taken Unknown] multivitamin (Daily Multi-Vitamin tablet) 1 tab PO DAILY 06/05/20 [History Last Taken 09/25/23] Lactobacillus acidophilus 10 billion cell capsule (NewFlora) 100 mmu cells PO DAILY 09/26/23 [History Last Taken 09/26/23] ciprofloxacin HCl 500 mg tablet 500 mg PO BID 09/26/23 [History Last Taken Unknown] Allergy/AdvReac Type Severity Reaction Status Date / Time Sulfa (Sulfonamide Allergy Hives Verified 09/26/23 07:12 Antibiotics) Surgical History History of cholecystectomy Social History Smoking Status: Never smoker ROS ROS ED Constitutional Constitutional ED: Denies chills, fever(s) or sweats Eyes Eyes: Denies blurry vision or change in vision ENT ENT ED: Denies ear pain or sore throat Cardiovascular Cardiovascular: Denies chest pain, palpitations or racing heartbeat Respiratory/Chest Respiratory/Chest: Denies cough, dyspnea or sputum Gastrointestinal Gastrointestinal: Reports abdominal pain; Denies constipation, diarrhea, nausea or vomiting Genitourinary Genitourinary ED: Denies dysuria, hematuria or urinary frequency Musculoskeletal Musculoskeletal: Denies arthralgias, myalgias or neck pain Integumentary Denies abscess, Abrasions or rash Neurologic Neurologic: Denies headache(s), paresthesias or weakness Psychiatric Psychiatric: Denies anxiety, depression, suicidal ideation or suicidal thoughts Endocrine Endocrinology: Denies polydipsia or polyuria EXAM Physical Exam Const Vital Signs: 09/26/23 07:08 09/26/23 08:12 09/26/23 09:12 Temperature 97.8 F 97.8 F 97.9 F Temperature Source Temporal Temporal Temporal Pulse Rate 87 70 72 Respiratory Rate 16 16 18 Blood Pressure 141/73 H 135/86 H 137/84 H Blood Pressure Mean 95 102 101 Pulse Ox 100 99 100 Oxygen Delivery Method Room Air Room Air Room Air 09/26/23 10:00 Temperature 97.8 F Temperature Source Temporal Pulse Rate 68 Respiratory Rate 16 Blood Pressure 132/82 H Blood Pressure Mean 98 Pulse Ox 99 Oxygen Delivery Method Room Air Positive well nourished General Appearance ED: Negative for pallor HEENT Reports moist mucous membranes normocephalic and atraumatic Eyes PERRL Resp normal respiratory effort Cardio regular rate and regular rhythm GI Palpation: tender LLQ Back/Spine no CVA tenderness Neuro CN's II-XII intact bilaterally Sensorium / Orientation: alert Psych mental status grossly normal Skin General Skin Exam: Negative for jaundice or pallor MDM MDM MDM Narrative Medical decision making narrative: 63-year-old female presenting with left lower quadrant abdominal pain. She states that initially started on the right. She denies constipation, diarrhea, urinary or vaginal complaints. No fevers or chills. Patient with no history of kidney stones. She is currently on Cipro because she had some occult blood in her previous urinalysis. Patient presenting with right flank pain. Differential includes colitis, diverticulitis, constipation, UTI, pyelonephritis, renal calculi, ureteral calculi, bowel obstruction, malignancy, dehydration, electrolyte abnormalities, ovarian cyst, ovarian torsion. CBC obtained to assess white blood cell count, hemoglobin, platelets. BMP to assess renal function, electrolytes, glucose. Urinalysis to assess for UTI and occult blood. CBC and BMP unremarkable. Urinalysis shows 150 occult blood. No nitrites. 0 to 5 cc, 5-10 WBCs, 1+ bacteria with no contaminants. Discussion with the patient abnormal lab work and urinalysis will obtain a CT of the abdomen pelvis with IV contrast. Abdomen pelvis with IV contrast shows epiploic appendagitis. There is interpretation that shows possible nonocclusive femoral vein thrombosis. Recommendation was for follow-up ultrasound. Duplex was performed and shows no DVT. Patient counseled on findings. I feel she stable for discharge at this time. Return precautions were discussed. Impression: 1. Abdominal pain 2. Epiploic appendagitis Lab Data Attestation: I reviewed the patient's lab results. Labs: Laboratory Results - last 24 hr 09/26/23 09/26/23 07:38 07:41 WBC 4.7 RBC 4.26 Hgb 13.0 Hct 40.1 MCV 94.1 MCH 30.5 MCHC 32.4 RDW Std Deviation 44.0 H RDW Coeff of Jil 12.7 Plt Count 262 MPV 9.1 Immature Gran % (Auto) 0.000 Neut % (Auto) 54.0 Lymph % (Auto) 38.2 Chambers % (Auto) 5.5 Eos % (Auto) 1.5 Baso % (Auto) 0.8 Absolute Neuts (auto) 2.6 Absolute Lymphs (auto) 1.81 Nucleated RBC % 0 Sodium 139 Potassium 4.0 Chloride 108 H Carbon Dioxide 27.0 Anion Gap 4 L BUN 13 Creatinine 0.89 Estim Creat Clear Calc 47.08 Est GFR (MDRD) Af Amer 83 Est GFR (MDRD) Non-Af 69 BUN/Creatinine Ratio 14.7 Glucose 103 Calcium 8.9 Urine Color Yellow Urine Clarity Sl. Cloudy Urine pH 6.0 Ur Specific [place] 1.020 Urine Protein 15 H Urine Glucose (UA) Normal Urine Ketones Negative Urine Occult Blood 150 H Urine Nitrite Negative Urine Bilirubin Negative Urine Urobilinogen Normal Ur Leukocyte Esterase 100 H Urine RBC 0-5 SEEN Urine WBC 5-10 SEEN Ur Squamous Epith Cells 0 SEEN Urine Bacteria 1+ Urine Mucus 0 SEEN Radiography Diagnostic Testing: Clinical Impression(s) from Imaging Studies Abdomen/Pelvis CT 09/26/23 08:41 IMPRESSION: Acute epiploic appendagitis with mild left lower quadrant inflammation. Colonic diverticulosis without acute diverticulitis. Small hypodensity in the left femoral vein, possible nonocclusive deep venous thrombosis versus mixing artifact. Recommend correlation with venous Doppler ultrasound. Electronically Signed: Janine Whittington MD at 9:51 EST , Discharge Plan Triage Chief Complaint: Complaint Other Complaint: Abd Pain Flank Pain ED Provider: Dalton Alegria Dx/Rx/DC Orders Instructions: Epiploic Appendagitis Prescriptions: No Action multivitamin [Daily Multi-Vitamin] Tablet 1 tab PO DAILY loratadine [Claritin] 10 mg tablet 10 mg PO PRN PRN (Reason: allergy symptoms) ciprofloxacin HCl 500 mg tablet 500 mg PO BID Patient Comments: started 09/25/23 NewFlora 10 billion cell capsule 100 mmu cells PO DAILY Primary Care Provider: Rajni Betancourt Referrals: Rajni Betancourt MD [Primary Care Provider] - Disposition Disposition: Home, Self Care
[2023-09-26 09:12] VITALS: BP 137/84; PULSE 72; RESP 18; TEMP 36.6; O2SAT 100
[2023-09-26] MEDS: Ketorolac 15 MG/ML Vial IV (09:59)
[2023-09-26 10:00] VITALS: BP 132/82; PULSE 68; RESP 16; TEMP 36.6; O2SAT 99
--- NOTE | 2023-09-26 10:00 | VDLE_ITS ---
Reason For Study: Pain LLE RIGHT LEFT CFV is compressible, spontaneous, phasic, GSV is normal. competent and demonstrates normal CFV is compressible, spontaneous, phasic, augmentation. competent, and demonstrates normal Procedure augmentation. This is a venous duplex using B-mode, color FV is compressible, spontaneous, phasic, flow and spectral Doppler. competent and demonstrates normal Exam performed portable in ED. augmentation. A preliminary report was called and/or faxed POP V is compressible, spontaneous, phasic, to Antoinette REA. competent and demonstrates normal augmentation. T/P Trunk is compressible. PTV is compressible. LT PerV is compressible. VL/Venous Duplex US, Unilateral Interpretation Summary There is no evidence of left lower extremity deep vein thrombosis. Left great s aphenous vein appears patent and compressible segmentally. Normal flow patterns right common femoral vein Ordering Physician: Dalton Alegira Referring Physician: Rajni Betancourt Performed By: Veronika Starr, TAMERA, RVT
[2023-09-26 11:00] VITALS: BP 134/88; PULSE 70; RESP 18; TEMP 36.5; O2SAT 100
[2023-09-26 12:00] VITALS: BP 133/80; PULSE 74; RESP 16; TEMP 36.7; O2SAT 99
== END 2023-09-26 12:24 | disposition home or self-care (01) ==
PROVIDERS: Emergency Provider Student in an Organized Health Care Education/Training Program; PCP Family Medicine; Visit Provider Student in an Organized Health Care Education/Training Program
DX: K63.89 Other specified diseases of intestine (principal); Q43.8 Other specified congenital malformations of intestine; R10.32 Left lower quadrant pain; R93.5 Abnormal findings on diagnostic imaging of other abdominal regions, including retroperitoneum
CPT/HCPCS: 74177; 80048; 81001; 85025; 93971; 96374; 99283; Q9967; A4216

== ENCOUNTER → 2024-03-01 | Outpatient (CLI) | payer OTHER, SELFPAY ==
--- NOTE | 2024-03-01 08:05 | BI_ITS ---
MAMMOGRAPHY - BILATERAL SCREENING REASON FOR EXAM: Female, 63 years old. Routine annual screening examination. PERTINENT HISTORY: Non-contributory. TECHNIQUE: Digital bilateral breast to (3D mammographic acquisition) in the CC and MLO projections. 2-D mediolateral oblique (MLO) and craniocaudad (CC) views of both breasts were obtained. CAD: Full Field Digital Mammography with Computer Added Detection was performed. COMPARISON: Comparison is made with prior study date December 19, 2022 December 18, 2021. FINDINGS: Breast Composition: There are scattered areas of fibroglandular density. There are no dominant masses or suspicious calcifications. Stable small benign-appearing bilateral axillary lymph nodes. No other significant abnormalities are identified. There has been no significant change since the prior study. BI/SCRN MAMM (CAD)W/TO BILAT IMPRESSION: Stable bilateral screening mammogram. Yearly follow-up mammogram recommended. (A) ASSESSMENT CATEGORY: BIRADS Category 2: Benign. A letter regarding these results will be sent to the patient by the facility within 30 days. Approximately 10% of breast cancers are not detected by mammography. A normal mammogram should not delay biopsy of a clinically suspicious abnormality. [id number] Electronically Signed: Ernesto Belcher MD at 8:43 EDT ,
== END | disposition home or self-care (01) ==
LOC: OPBI 08:04
PROVIDERS: PCP Family Medicine; Referring Provider Family Medicine; Visit Provider Family Medicine
DX: Z12.31 Encounter for screening mammogram for malignant neoplasm of breast (principal)
CPT/HCPCS: 77063; 77067

== ENCOUNTER → 2024-07-01 | Outpatient (CLI) | payer OTHER, SELFPAY ==
[2024-07-01 13:12] LABS: Cholesterol 277 mg/dL (200); High Density Lipoprotein 116 mg/dL; Triglycerides 66 mg/dL; Very Low Density Lipoprotein 13 mg/dL (5-40)
== END | disposition home or self-care (01) ==
PROVIDERS: PCP Family Medicine; Referring Provider Family Medicine; Visit Provider Family Medicine
DX: Z00.00 Encounter for general adult medical examination without abnormal findings (principal)
CPT/HCPCS: 36415; 80061